=== PATIENT | female | born 1965 | race Caucasian/White ===

== ENCOUNTER 2023-02-27 12:30 | Day surgery (SDC) | payer BC ==
[2023-02-27] MEDS ORDERED: CEFAZOLIN SODIUM 2 GM/VIAL ONE (12:55)
[2023-02-27] MEDS ORDERED: Ringers Lactate 1,000 ML IV ONE (12:55)
[2023-02-27] MEDS ORDERED: BUPIVACAINE 0.25% PF 10 ML VIAL ONE (15:47)
[2023-02-27] MEDS ORDERED: LIDOCAINE HCL/EPINEPHRINE 20 ML MDV ONE (15:50)
[2023-02-27] MEDS ORDERED: propofoL 200 MG/20 ML VIAL IV ONE (16:25)
[2023-02-27] MEDS ORDERED: LIDOCAINE 1% MPF 5 ML VIAL ONE (16:25)
[2023-02-27] MEDS ORDERED: FENTANYL CITR 100 MCG/2 ML ONE (16:25)
[2023-02-27] MEDS ORDERED: MIDAZOLAM HCL 2 MG/2 ML INJ ONE (16:25)
[2023-02-27] MEDS ORDERED: ONDANSETRON 4 MG/2 ML VIAL ONE ×2 (16:26→17:37)
[2023-02-27] MEDS ORDERED: dexAMETHasone 4 MG/ML VIAL ONE (16:26)
[2023-02-27] MEDS ORDERED: KETOROLAC 30 MG/ML INJ ONE (17:07)
--- NOTE | 2023-02-27 17:17 | P.OP ---
Preoperative diagnosis: RIGHT Labial Abscess / Infected Cyst Postoperative diagnosis: RIGHT Labial Abscess / Infected Cyst Primary procedure: Excisional Debridement of RIGHT Labial Cyst Anesthesia: GETA + Local Estimated blood loss: <5cc Specimen: cultures, debridement tissue Findings: Right infected labial cyst Complications: None Transferred to: Recovery Room Condition: Good
[2023-02-27] MEDS: HYDROMORPHONE HCL 1 MG/ML INJ ONE ×2 (17:30→17:35)
[2023-02-27] MEDS: FENTANYL CITR 100 MCG/2 ML ONE ×2 (17:43→17:48)
[2023-02-27] MEDS ORDERED: HYDROCODONE/APAP 10/325 TAB ONE (18:13)
[2023-02-27 18:41] VITALS: BP 120/88; TEMP 97.1; O2SAT 96
--- NOTE | 2023-02-28 02:47 | OP ---
Date of Procedure: 02/27/2023 Surgeon: Lakhwinder Garcia MD, Preoperative Diagnosis: Right labial abscess/infected cyst. Postoperative Diagnosis: Right labial abscess/infected cyst. Procedure Performed: Excisional debridement of right labial cyst. Anesthesia: General endotracheal plus local with 0.25% Marcaine. Estimated Blood Loss: Less than 5 cc. Specimen: Culture sent both aerobic and anaerobic speciation and debridement tissue. Findings: Right infected labial cyst. Complications: None. The patient transferred to recovery room in good condition. Procedure In Detail: After informed consent was obtained, the patient was brought to the operating r oom prepped and draped in the usual sterile fashion after adequate anesthesia was achieved. The ole ent remained in lithotomy position. I anesthetized the area of the right labia/perineal region down to the subcutaneous tissues. I then made an elliptical incision down through an area which had a pal pable cyst in the area. I dissected down to encounter a cystic structure which had abscess type mate rial. This was cultured both aerobic and anaerobic speciation, then dissected circumferentially down all the way to the muscular plane without violating any muscular planes and removed the cyst in its entirety, sent it off for pathologic examination as well. The area was copiously irrigated and packe d with Vashe soaked packing and a sterile dressing placed over top. The patient tolerated the proce dure well without evidence of complication and transferred to PACU in good condition. All counts were correct at the end of the case. ROSARIO/HATTIEL Voice ID: [id number] Report ID: [id number]
== END 2023-02-27 18:35 | disposition home or self-care (01) ==
LOC: OR 12:30
PROVIDERS: ATTEND Surgery
PROC: 0UBM0ZZ Excision of Vulva, Open Approach (ICD-10-PCS; principal; 2023-02-27 16:30)
DX: L72.0 Epidermal cyst (principal); N76.4 Abscess of vulva
CPT/HCPCS: 11421; 87070; 87205; 88304; 87075; J2704; J1100; J2001; J2250; J3010 ×2; J1170; J2405 ×2; J7120